=== PATIENT | male | born 1980 | race Caucasian/White ===

== ENCOUNTER 2017-02-03 16:00 | Emergency (ER) | payer MEDICARE ==
[2017-02-03 18:30] LABS: HEMOGLOBIN 11.2 gm/dl (14.0-17.5); RED BLOOD COUNT 3.8 M/UL (4.20-5.50); WHITE BLOOD COUNT 9.8 K/UL (4.5-11.0)
[2017-02-03 18:46] LABS: BUN/CREATININE RATIO 11 (0-10)
== END 2017-02-04 00:05 | disposition home or self-care (01) ==
LOC: ER1 16:00
PROVIDERS: Emergency Medicine
DX: L03.317 Cellulitis of buttock (principal); L03.032 Cellulitis of left toe
CPT/HCPCS: 36415; 71010; 72100; 73630; 80053; 80307; 81001; 82550; 83605; 83690; 84484; 85025; 85610; 85730; 87040; 87077; 87086; 87186; 93005; 93926; 96374; 96375; 99284; J1885; J3370

== ENCOUNTER 2021-07-17 13:13 | Emergency (ER) | payer OTHER ==
[~2021-07-17 13:13] MED LIST: IBUPROFEN600 MG PO; KEFLEX CAP 500500 MG PO; VIBRAMYCIN100 MG PO
[2021-07-17 14:14] LABS: HEMOGLOBIN 13.4 gm/dl (14.0-17.5)
[2021-07-17 14:24] LABS: RED BLOOD COUNT 4.43 M/UL (4.20-5.50)
[2021-07-17 14:31] LABS: BUN/CREATININE RATIO 13 (0-10)
[2021-07-17] MEDS ORDERED: ZOFRAN4 MG PO (17:56)
[2021-07-17] MEDS ORDERED: OMNICEF 300 MG300 MG PO (17:56)
== END 2021-07-17 18:02 | disposition home or self-care (01) ==
LOC: ER1 13:13
PROVIDERS: Physician Assistant
DX: R31.9 Hematuria, unspecified (principal); R11.0 Nausea; R91.1 Solitary pulmonary nodule; Z88.1 Allergy status to other antibiotic agents; Z20.822 Contact with and (suspected) exposure to COVID-19
CPT/HCPCS: 80053; 81001; 85025; 87086; 99284; U0002

== ENCOUNTER 2021-10-29 07:59 | Inpatient (IN) | payer OTHER ==
[~2021-10-29] VITALS: Ht 190.5 cm; Wt 120.7 kg
[~2021-10-29 07:59] MED LIST changes: +OMNICEF 300 MG300 MG PO; +ZOFRAN4 MG PO
[2021-10-29 09:23] LABS: HEMOGLOBIN 11.6 gm/dl (14.0-17.5); RED BLOOD COUNT 4.19 M/UL (4.20-5.50)
[2021-10-29 09:41] LABS: WHITE BLOOD COUNT 13.2 K/UL (4.5-11.0)
[2021-10-29 10:20] LABS: BUN/CREATININE RATIO 15 (0-10)
[2021-10-29] MEDS ORDERED: BUPRENORPHIN-N1 EACH SL (11:53)
[2021-10-29] MEDS ORDERED: GABAPENTIN800 MG PO (11:53)
[2021-10-29] MEDS ORDERED: IBU800 MG PO (11:53)
[2021-10-29] MEDS ORDERED: MELATONIN10 M2 PO (11:54)
[2021-10-29] MEDS ORDERED: LEVOTHYROXINE200 MC1 PO (11:54)
[2021-10-29] MEDS ORDERED: ASPIRIN81 MG PO (11:54)
[2021-10-29] MEDS ORDERED: PROBIOTIC 2 BI1 EACH PO (11:54)
[2021-10-29 23:55] LABS: ACINETOBACTER BAUMANNII Not Detected (Negative); CANDIDA ALBICANS Not Detected (Negative); CANDIDA KRUSEI Not Detected (Negative); CANDIDA TROPICALIS Not Detected (Negative); ESCHERICHIA COLI Not Detected (Negative); HAEMOPHILUS INFLUENZAE Not Detected (Negative); KLEBSIELLA OXYTOCA Not Detected (Negative); KLEBSIELLA PNEUMONIAE Not Detected (Negative); KPC-CARBAPENEM-RESISTANCE GENE Not Detected (Negative); PROTEUS Not Detected (Negative); PSEUDOMONAS AERUGINOSA Not Detected (Negative); SERRATIA MARCESANS Not Detected (Negative); STAPHYLOCOCCUS Not Detected (Negative); STAPHYLOCOCCUS AUREUS Not Detected (Negative); STREP AGALACTIAE (GROUP B) Not Detected (Negative); STREP PYOGENES (GROUP A) Not Detected (Negative); STREPTOCOCCUS Not Detected (Negative); mecA (METHICILLIN RESIST GENE Not Detected (Negative); vanA/B (VANCOMYCIN RESIST GENE Not Detected (Negative)
[2021-10-29 23:58] LABS: ENTEROCOCCUS DETECTED (Negative)
[2021-10-30 07:07] LABS: HEMOGLOBIN 10.5 gm/dl (14.0-17.5); RED BLOOD COUNT 3.86 M/UL (4.20-5.50); WHITE BLOOD COUNT 8.3 K/UL (4.5-11.0)
[2021-10-30 07:36] LABS: BUN/CREATININE RATIO 17 (0-10)
[2021-10-31 09:00] LABS: HEMOGLOBIN 11.7 gm/dl (14.0-17.5); WHITE BLOOD COUNT 8.2 K/UL (4.5-11.0)
[2021-10-31 09:01] LABS: RED BLOOD COUNT 4.25 M/UL (4.20-5.50)
[2021-10-31 09:02] LABS: BUN/CREATININE RATIO 13 (0-10)
[2021-11-02 07:38] LABS: BUN/CREATININE RATIO 11 (0-10)
[2021-11-02 09:03] LABS: HEMOGLOBIN 10.7 gm/dl (14.0-17.5); RED BLOOD COUNT 3.99 M/UL (4.20-5.50)
[2021-11-02 09:04] LABS: WHITE BLOOD COUNT 10.8 K/UL (4.5-11.0)
--- NOTE | 2021-11-02 10:10 | NUR ---
DR. MÉNDEZ STATED PATIENT COULD REMOVE TELEMETRY TO SHOWER THEN REAPPLY AFTER.
[2021-11-02] MEDS ORDERED: AMPICILLIN IV (10:23)
[2021-11-02] MEDS ORDERED: ROCEPHIN IM/I2000 MG IV (10:23)
[2021-11-02] MEDS ORDERED: CHRONULAC20 GM/30 M PO (10:23)
[2021-11-02] MEDS ORDERED: BUPROPION XL150 MG PO (10:23)
[2021-11-02] MEDS ORDERED: FIBER POWDER368 GM PO (10:23)
[2021-11-04 06:04] LABS: BUN/CREATININE RATIO 9 (0-10)
[2021-11-05 07:35] LABS: HEMOGLOBIN 9.5 gm/dl (14.0-17.5); WHITE BLOOD COUNT 9.2 K/UL (4.5-11.0)
[2021-11-05 07:40] LABS: RED BLOOD COUNT 3.55 M/UL (4.20-5.50)
[2021-11-05 08:02] LABS: BUN/CREATININE RATIO 13 (0-10)
[2021-11-06 06:06] LABS: HEMOGLOBIN 9.6 gm/dl (14.0-17.5); RED BLOOD COUNT 3.68 M/UL (4.20-5.50); WHITE BLOOD COUNT 8.6 K/UL (4.5-11.0)
[2021-11-06 06:28] LABS: BUN/CREATININE RATIO 10 (0-10)
[2021-11-07 08:17] LABS: HEMOGLOBIN 10.3 gm/dl (14.0-17.5); RED BLOOD COUNT 3.83 M/UL (4.20-5.50); WHITE BLOOD COUNT 9.5 K/UL (4.5-11.0)
[2021-11-07 08:41] LABS: BUN/CREATININE RATIO 10 (0-10)
[2021-11-08 07:48] LABS: HEMOGLOBIN 9.7 gm/dl (14.0-17.5); RED BLOOD COUNT 3.76 M/UL (4.20-5.50); WHITE BLOOD COUNT 9.1 K/UL (4.5-11.0)
[2021-11-08 08:10] LABS: BUN/CREATININE RATIO 10 (0-10)
[2021-11-08] MEDS ORDERED: AMPICILLIN IV (08:56)
[2021-11-08] MEDS ORDERED: ISO GENTAM IV (09:03)
[2021-11-08] MEDS ORDERED: LASIX20 MG PO (11:41)
[2021-11-08] MEDS ORDERED: POTASSIUM CHLO10 MEQ PO (11:41)
--- NOTE | 2021-11-08 16:33 | NUR ---
REPORT CALLED TO [id number].
--- NOTE | 2021-11-08 19:57 | NUR ---
REPORT CALLED TO [facility]
== END 2021-11-08 20:25 | DRG 871 ==
LOC: ER1 07:59 → CDU 11:34 → MED SURG 4 12:17
PROVIDERS: Emergency Medicine; Internal Medicine; Internal Medicine Infectious Disease; Physician Assistant Medical; ADMIT Internal Medicine
PROC: 02HV33Z Insertion of Infusion Device into Superior Vena Cava, Percutaneous Approach (ICD-10-PCS; principal; 2021-11-02)
DX: A41.81 Sepsis due to Enterococcus (principal); I33.0 Acute and subacute infective endocarditis; I76 Septic arterial embolism; N17.9 Acute kidney failure, unspecified; R91.1 Solitary pulmonary nodule; F17.210 Nicotine dependence, cigarettes, uncomplicated; E07.9 Disorder of thyroid, unspecified; E87.6 Hypokalemia; I07.1 Rheumatic tricuspid insufficiency; B95.2 Enterococcus as the cause of diseases classified elsewhere; E03.9 Hypothyroidism, unspecified; E66.9 Obesity, unspecified; D64.9 Anemia, unspecified; B18.2 Chronic viral hepatitis C; Z20.822 Contact with and (suspected) exposure to COVID-19; R21 Rash and other nonspecific skin eruption; T36.1X5A Adverse effect of cephalosporins and other beta-lactam antibiotics, initial encounter; F19.10 Other psychoactive substance abuse, uncomplicated; Z88.2 Allergy status to sulfonamides; Z79.899 Other long term (current) drug therapy; Z89.022 Acquired absence of left finger(s); Z88.0 Allergy status to penicillin; Z88.1 Allergy status to other antibiotic agents; Z79.82 Long term (current) use of aspirin; Z68.33 Body mass index [BMI] 33.0-33.9, adult
CPT/HCPCS: ECHO; 36415; 71045; 80048; 80053; 80170; 80202; 80307; 81001; 82550; 82553; 83605; 83735; 83874; 83880; 84132; 84439; 84443; 84484; 85025; 85027; 86140; 87040; 87077; 87086; 87150; 87186; 93005; 93306; 99285; C1751; J0290; J0690; J0692; J0696; J1580; J1650; J2405; J2700; J2997; J3370; J7030; J7050; J7070; Q9967; U0002